=== PATIENT | male | born 1970 | race Caucasian/White ===

== ENCOUNTER 2016-07-15 20:06 | Emergency (ER) | payer OTHER ==
--- NOTE | 2016-07-15 22:32 | ED MED RECONCILIATION SUMMARY ---
Patient: CRISTOBAL MORA Medication Reconciliation Report [facility] VisitID: [id number] [address] [place] [address] 45y, M Registration Date/Time: 07/15/2016 Weight: 77.1 kg Height/Length: 72 in. BMI: 23.1 ALLERGIES: No Known Drug Allergy The patient's Home Medications are listed below: THE FOLLOWING MEDICATIONS NEED TO BE RECONCILED: Meloxicam Oral The source(s) of the original Home Medication information: Not obtained. The following Medications were given to the patient in the Emergency Department: None. The following Medications were prescribed to the patient: Penicillin V 500mg: take 1 tab orally every 6 hours for 10 days. Dispense forty (40). No refill -- Pamela Deleon A.R.N.P. [place] 5 mg / 325 mg tablets: take 1 to 2 orally every 6 hours as needed for pain. Dispense fifteen (15). No refills. Substitution is permissible. -- Pamela Deleon A.R.N.P.
--- NOTE | 2016-07-15 22:32 | ED CLINICAL REPORT ---
Clinical Report - Physicians/Mid Levels [facility] [address] [address] 07/15/2016 20:08 Patient: CRISTOBAL MORA Time Seen: 2049; initial patient contact, initial documentation, patient care assumed. Arrived- By private vehicle. Historian- patient. HISTORY OF PRESENT ILLNESS Chief Complaint: DENTAL PAIN. This started years ago and is still present and worsening. (3 days ago). Pain described as severe. No sore throat, mouth sores, nasal discharge or congestion or ear pain. He has had severe toothache involving a single tooth (right upper molar). He has had mild swelling of the right jaw. He has had mild swelling of the right face. He has had severe right jaw pain. He has had severe right-sided facial pain. (has dental appt scheduled for 07/27 tooth broke off long time ago, started hurting x3 days ago). Similar symptoms previously: Chronically. Recent medical care: Not recently seen/assessed. REVIEW OF SYSTEMS No fever, cough or difficulty breathing. All systems otherwise negative, except as recorded above. PAST HISTORY See nurses notes. PROBLEMS: Back Pain. --20:17 Nahun Miranda R.N. ADDITIONAL SURGERIES: Tonsillectomy. --20:17 Nahun Miranda R.N. SOCIAL HISTORY Heavy tobacco smoker. Occasional alcohol use. No drug use. No recent travel. Is a local resident. FAMILY HISTORY Negative. ADDITIONAL NOTES The nursing notes have been reviewed with agreement regarding the chief complaint, HPI, ROS, PMH and patient medications and allergies. PHYSICAL EXAM Vital Signs: 07/15/2016 20:14 BP: 152/95. HR: 50. RR: 16. O2 saturation: 98%. Temp: 98 F. Have been reviewed as abnormal and appear to be correct. Hypertensive. Bradycardic. Respiratory rate normal. Temperature normal. Oxygen saturation normal. Appearance: Alert. No acute distress. Head: Abnormal external inspection. Mild swelling of the right maxilla. Tenderness present to percussion/palpation of the sinuses: mild right maxillary tenderness. Eyes: Pupils equal, round and reactive to light. Conjunctivae and eyelids normal. ENT: Moderate, extensive dental decay (lower right third molar) (piece of tooth gone with decay, other teeth affected with decay, broken or missing). No gingival tenderness, induration, swelling or fluctuance. Ears normal. Nose normal. Trismus present. Pharynx normal. Lips normal. Gums normal. Uvula midline. Neck: Normal inspection. Trachea midline. No adenopathy. Thyroid normal. Neck supple. Respiratory: No respiratory distress. Skin: Normal skin color. No rash. Normal skin turgor. Extremities: Extremities exhibit normal ROM. Extremities nontender. Neuro: Oriented X 3. No motor deficit. No sensory deficit. PROGRESS AND PROCEDURES Course of Care: 20:51 07/15/16. pt has ellie for frequent rx of tramadol, last rx 06/08 #60, see report for full details. Patient counseled in person regarding the patient's stable condition and diagnosis. Differential Diagnosis: Other possible considerations: dental pain, abscess, caries, substance abuse. Above considerations are based on history and physical exam. Differential diagnosis was discussed with patient. Disposition: Discharged home in good and unchanged condition. Condition: good and stable. CLINICAL IMPRESSION Severe dental pain. INSTRUCTIONS Warnings: GENERAL WARNINGS: Return or contact your physician immediately if your condition worsens or changes unexpectedly, if not improving as expected, or if other problems arise. Specifically return if problem worsens. Prescription Medications: Penicillin V 500mg: take 1 tab orally every 6 hours for 10 days. Dispense forty (40). No refill [place] 5 mg / 325 mg tablets: take 1 to 2 orally every 6 hours as needed for pain. Dispense fifteen (15). No refills. Substitution is permissible. Follow-up: Follow up with a dentist as scheduled even if well. Summary of care provided to patient. Understanding of the discharge instructions verbalized by patient. (Electronically signed by Pamela Deleon A.R.N.P. 07/15/2016 22:32)
--- NOTE | 2016-07-15 22:32 | ED DISCHARGE INSTRUCTIONS ---
Patient: CRISTOBAL MORA General Instructions [facility] VisitID: [id number] [place] [address] 45y, M Registration Date/Time: 07/15/2016 Severe dental pain. INSTRUCTIONS Warnings: GENERAL WARNINGS: Return or contact your physician immediately if your condition worsens or changes unexpectedly, if not improving as expected, or if other problems arise. Specifically return if problem worsens. Prescription Medications: Penicillin V 500mg: take 1 tab orally every 6 hours for 10 days. Dispense forty (40). No refill [place] 5 mg / 325 mg tablets: take 1 to 2 orally every 6 hours as needed for pain. Dispense fifteen (15). No refills. Substitution is permissible. Follow-up: Follow up with a dentist as scheduled even if well. Summary of care provided to patient. Understanding of the discharge instructions verbalized by patient. ADDITIONAL INFORMATION Dental Pain A crack or cavity in the tooth, which exposes the sensitive inner area of the tooth can cause tooth pain. An infection in the gum or the root of the tooth can cause pain and swelling. The pain is often made worse by drinking hot or cold fluids, or biting on hard foods. Pain may spread from the tooth to the ear or jaw on the same side. Home Care: Avoid hot and cold foods and liquids since your tooth may be sensitive to temperature changes. If your tooth is chipped or cracked, or if there is a large open cavity, apply OIL OF CLOVES (available okfw-ktq-ohzpfnh in drug stores) directly to the tooth to reduce pain. Some pharmacies carry an ovfq-cgg-qklujgl "toothache kit." This contains a paste, which can be applied over the exposed tooth to decrease sensitivity. A cold pack on your jaw over the sore area may help reduce pain. You may use acetaminophen (Tylenol) or ibuprofen (Motrin, Advil) to control pain, unless another medicine was prescribed. [ NOTE: If you have chronic liver or kidney disease or ever had a stomach ulcer or GI bleeding, talk with your doctor before using these medicines.] If you have signs of an infection, an antibiotic will be given. Take it as directed. Follow-Up as directed with a dentist. Your pain may go away with the treatment given. However, only a dentist can fully evaluate and treat the cause and prevent the pain from coming back again. TOOTHACHE IS A SIGN OF DISEASE IN YOUR TOOTH AND SHOULD BE EXAMINED AND TREATED BY A DENTIST. Get Prompt Medical Attention if any of the following occur: Your face becomes swollen or red Pain worsens or spreads to the neck Fever over 100.4 F (38.0 C) Unusual drowsiness; headache or stiff neck; weakness or fainting Pus drains from the tooth Difficulty swallowing or breathing Dental Cavity A dental cavity is a pit or crater in the enamel surface of the tooth. This exposes the sensitive inner layer of the tooth and causes pain. If untreated, the cavity will get bigger and may cause an infection or abscess in the root of the tooth. An infection in the tooth is a much more serious problem and may require a root canal or removal of the entire tooth. The tooth pain may be made worse by drinking hot or cold fluids. It may spread from the tooth to the ear or jaw on the same side. Home Care: Avoid hot and cold foods, and liquids since your tooth may be sensitive to temperature changes. If your tooth is chipped or cracked, or if there is a large open cavity, apply OIL OF CLOVES (available jabv-zxw-zbguivi in drug stores) directly to the tooth to reduce pain. Some pharmacies carry an ercm-cpl-vupxlek "toothache kit." This contains oil of cloves and a paste, which can be applied over the exposed tooth to decrease sensitivity. An ice pack on your jaw over the sore area may help to reduce pain. You may use acetaminophen (Tylenol) or ibuprofen (Motrin, Advil) to control pain, unless another pain medicine was prescribed. [ NOTE: If you have liver disease or ever had a stomach ulcer, talk with your doctor before using these medicines.] If you have signs of an infection, an antibiotic will be given. Take it as directed. Follow-Up with your dentist as directed. Although your pain may go away with the treatment given, only a dentist can fully evaluate and treat this problem to prevent further tooth damage. Get Prompt Medical Attention if any of the following occur: Redness or swelling of the face Pain worsens or spreads to the neck Fever over 100.5 F (38C) Unusual drowsiness; headache or stiff neck; weakness or fainting Pus drains from the tooth or gum Difficulty swallowing or breathing Penicillin V Potassium Oral tablet What is this medicine? PENICILLIN V (pen i SILL in V) is a penicillin antibiotic. It is used to treat certain kinds of bacterial infections. It will not work for colds, flu, or other viral infections. How should I use this medicine? Take this medicine by mouth with a full glass of water. Follow the directions on the prescription label. Take your medicine at regular intervals. Do not take your medicine more often than directed. Take all of your medicine as directed even if you think your are better. Do not skip doses or stop your medicine early. Talk to your superannuation funds manager regarding the use of this medicine in children. While this drug may be prescribed for selected conditions, precautions do apply. What side effects may I notice from receiving this medicine? Side effects that you should report to your doctor or health career discovery teacher as soon as possible: allergic reactions like skin rash or hives, swelling of the face, lips, or tongue breathing problems fever new symptoms of infection redness, blistering, peeling or loosening of the skin, including inside the mouth unusually weak or tired Side effects that usually do not require medical attention (report to your doctor or health career discovery teacher if they continue or are bothersome): diarrhea headache nausea, vomiting sore mouth or tongue stomach upset What may interact with this medicine? control pills methotrexate other antibiotics probenecid some vaccines What if I miss a dose? If you miss a dose, take it as soon as you can. If it is almost time for your next dose, take only that dose. Do not take double or extra doses. Where should I keep my medicine? Keep out of the reach of children. Store at room temperature between 15 and 30 degrees C (59 and 86 degrees F). Keep container tightly closed. Throw away any unused medicine after the expiration date. What should I tell my health care provider before I take this medicine? They need to know if you have any of these conditions: asthma bowel disease, like colitis eczema kidney disease an unusual or allergic reaction to penicillin, cephalosporins, other antibiotics or medicines, foods, tartrazine or other dyes, or preservatives or trying to get breast-feeding What should I watch for while using this medicine? Tell your doctor or health career discovery teacher if your symptoms do not improve. Do not treat diarrhea with over the counter products. Contact your doctor if you have diarrhea that lasts more than 2 days or if it is severe and watery. If you have diabetes, you may get a false-positive result for sugar in your urine. Check with your doctor or health career discovery teacher. control pills may not work properly while you are taking this medicine. Talk to your doctor about using an extra method of control. Hydrocodone Bitartrate, Acetaminophen Oral tablet What is this medicine? ACETAMINOPHEN; HYDROCODONE (a set a CK andree fen; iliana droe KOE done) is a pain reliever. It is used to treat mild to moderate pain. How should I use this medicine? Take this medicine by mouth. Swallow it with a full glass of water. Follow the directions on the prescription label. If the medicine upsets your stomach, take the medicine with food or milk. Do not take more than you are told to take. Talk to your superannuation funds manager regarding the use of this medicine in children. This medicine is not approved for use in children. What side effects may I notice from receiving this medicine? Side effects that you should report to your doctor or health career discovery teacher as soon as possible: allergic reactions like skin rash, itching or hives, swelling of the face, lips, or tongue breathing problems confusion feeling faint or lightheaded, falls stomach pain yellowing of the eyes or skin Side effects that usually do not require medical attention (report to your doctor or health career discovery teacher if they continue or are bothersome): nausea, vomiting stomach upset What may interact with this medicine? alcohol antihistamines isoniazid medicines for depression, anxiety, or psychotic disturbances medicines for sleep muscle relaxants naltrexone narcotic medicines (opiates) for pain phenobarbital ritonavir tramadol What if I miss a dose? If you miss a dose, take it as soon as you can. If it is almost time for your next dose, take only that dose. Do not take double or extra doses. Where should I keep my medicine? Keep out of the reach of children. This medicine can be abused. Keep your medicine in a safe place to protect it from theft. Do not share this medicine with anyone. Selling or giving away this medicine is dangerous and against the law. Store at room temperature between 15 and 30 degrees C (59 and 86 degrees F). Protect from light. Keep container tightly closed. Throw away any unused medicine after the expiration date. Discard unused medicine and used packaging carefully. Pets and children can be harmed if they find used or lost packages. What should I tell my health care provider before I take this medicine? They need to know if you have any of these conditions: brain tumor Crohn's disease, inflammatory bowel disease, or ulcerative colitis drink more than 3 alcohol-containing drinks per day drug abuse or addiction head injury heart or circulation problems kidney disease or problems going to the bathroom liver disease lung disease, asthma, or breathing problems an unusual or allergic reaction to acetaminophen, hydrocodone, other opioid analgesics, other medicines, foods, dyes, or preservatives or trying to get breast-feeding What should I watch for while using this medicine? Tell your doctor or health career discovery teacher if your pain does not go away, if it gets worse, or if you have new or a different type of pain. You may develop tolerance to the medicine. Tolerance means that you will need a higher dose of the medicine for pain relief. Tolerance is normal and is expected if you take the medicine for a long time. Do not suddenly stop taking your medicine because you may develop a severe reaction. Your body becomes used to the medicine. This does NOT mean you are addicted. Addiction is a behavior related to getting and using a drug for a non-medical reason. If you have pain, you have a medical reason to take pain medicine. Your doctor will tell you how much medicine to take. If your doctor wants you to stop the medicine, the dose will be slowly lowered over time to avoid any side effects. You may get drowsy or dizzy when you first start taking the medicine or change doses. Do not drive, use machinery, or do anything that may be dangerous until you know how the medicine affects you. Stand or sit up slowly. There are different types of narcotic medicines (opiates) for pain. If you take more than one type at the same time, you may have more side effects. Give your health care provider a list of all medicines you use. Your doctor will tell you how much medicine to take. Do not take more medicine than directed. Call emergency for help if you have problems breathing. The medicine will cause constipation. Try to have a bowel movement at least every 2 to 3 days. If you do not have a bowel movement for 3 days, call your doctor or health career discovery teacher. Too much acetaminophen can be very dangerous. Do not take Tylenol (acetaminophen) or medicines that contain acetaminophen with this medicine. Many non-prescription medicines contain acetaminophen. Always read the labels carefully. You have been given the following additional information: Dental Pain Dental Cavity Penicillin V Potassium Oral tablet Hydrocodone Bitartrate, Acetaminophen Oral tablet (Electronically signed by Pamela Deleon A.R.N.P. 07/15/2016 22:32)
--- NOTE | 2016-07-15 22:32 | ED CLINICAL REPORT ---
Clinical Report - Physicians/Mid Levels [facility] [address] [place] [address] 07/15/2016 20:08 Patient: CRISTOBAL MORA Time Seen: 2049; initial patient contact, initial documentation, patient care assumed. Arrived- By private vehicle. Historian- patient. HISTORY OF PRESENT ILLNESS Chief Complaint: DENTAL PAIN. This started years ago and is still present and worsening. (3 days ago). Pain described as severe. No sore throat, mouth sores, nasal discharge or congestion or ear pain. He has had severe toothache involving a single tooth (right upper molar). He has had mild swelling of the right jaw. He has had mild swelling of the right face. He has had severe right jaw pain. He has had severe right-sided facial pain. (has dental appt scheduled for 07/27 tooth broke off long time ago, started hurting x3 days ago). Similar symptoms previously: Chronically. Recent medical care: Not recently seen/assessed. REVIEW OF SYSTEMS No fever, cough or difficulty breathing. All systems otherwise negative, except as recorded above. PAST HISTORY See nurses notes. PROBLEMS: Back Pain. --20:17 Nahun Miranda R.N. ADDITIONAL SURGERIES: Tonsillectomy. --20:17 Nahun Miranda R.N. SOCIAL HISTORY Heavy tobacco smoker. Occasional alcohol use. No drug use. No recent travel. Is a local resident. FAMILY HISTORY Negative. ADDITIONAL NOTES The nursing notes have been reviewed with agreement regarding the chief complaint, HPI, ROS, PMH and patient medications and allergies. PHYSICAL EXAM Vital Signs: 07/15/2016 20:14 BP: 152/95. HR: 50. RR: 16. O2 saturation: 98%. Temp: 98 F. Have been reviewed as abnormal and appear to be correct. Hypertensive. Bradycardic. Respiratory rate normal. Temperature normal. Oxygen saturation normal. Appearance: Alert. No acute distress. Head: Abnormal external inspection. Mild swelling of the right maxilla. Tenderness present to percussion/palpation of the sinuses: mild right maxillary tenderness. Eyes: Pupils equal, round and reactive to light. Conjunctivae and eyelids normal. ENT: Moderate, extensive dental decay (lower right third molar) (piece of tooth gone with decay, other teeth affected with decay, broken or missing). No gingival tenderness, induration, swelling or fluctuance. Ears normal. Nose normal. Trismus present. Pharynx normal. Lips normal. Gums normal. Uvula midline. Neck: Normal inspection. Trachea midline. No adenopathy. Thyroid normal. Neck supple. Respiratory: No respiratory distress. Skin: Normal skin color. No rash. Normal skin turgor. Extremities: Extremities exhibit normal ROM. Extremities nontender. Neuro: Oriented X 3. No motor deficit. No sensory deficit. PROGRESS AND PROCEDURES Course of Care: 20:51 07/15/16. pt has ellie for frequent rx of tramadol, last rx 06/08 #60, see report for full details. Patient counseled in person regarding the patient's stable condition and diagnosis. Differential Diagnosis: Other possible considerations: dental pain, abscess, caries, substance abuse. Above considerations are based on history and physical exam. Differential diagnosis was discussed with patient. Disposition: Discharged home in good and unchanged condition. Condition: good and stable. CLINICAL IMPRESSION Severe dental pain. INSTRUCTIONS Warnings: GENERAL WARNINGS: Return or contact your physician immediately if your condition worsens or changes unexpectedly, if not improving as expected, or if other problems arise. Specifically return if problem worsens. Prescription Medications: Penicillin V 500mg: take 1 tab orally every 6 hours for 10 days. Dispense forty (40). No refill [place] 5 mg / 325 mg tablets: take 1 to 2 orally every 6 hours as needed for pain. Dispense fifteen (15). No refills. Substitution is permissible. Follow-up: Follow up with a dentist as scheduled even if well. Summary of care provided to patient. Understanding of the discharge instructions verbalized by patient. (Electronically signed by Pamela Deleon A.R.N.P. 07/15/2016 22:32)
--- NOTE | 2016-07-15 22:32 | ED MED RECONCILIATION SUMMARY ---
Patient: CRISTOBAL MORA Medication Reconciliation Report [facility] VisitID: [id number] [address] [place] [address] 45y, M Registration Date/Time: 07/15/2016 Weight: 77.1 kg Height/Length: 72 in. BMI: 23.1 ALLERGIES: No Known Drug Allergy The patient's Home Medications are listed below: THE FOLLOWING MEDICATIONS NEED TO BE RECONCILED: Meloxicam Oral The source(s) of the original Home Medication information: Not obtained. The following Medications were given to the patient in the Emergency Department: None. The following Medications were prescribed to the patient: Penicillin V 500mg: take 1 tab orally every 6 hours for 10 days. Dispense forty (40). No refill -- Pamela Deleon A.R.N.P. [place] 5 mg / 325 mg tablets: take 1 to 2 orally every 6 hours as needed for pain. Dispense fifteen (15). No refills. Substitution is permissible. -- Pamela Deleon A.R.N.P.
--- NOTE | 2016-07-15 22:32 | ED NURSING NOTES ---
Clinical Report - Nurses [facility] [address] [place] [address] 07/15/2016 20:08 Patient: CRISTOBAL MORA TRIAGE Triage time 2014. Acuity: LEVEL 4. Chief Complaint: MOUTH SORE, RIGHT UPPER TOOTHACHE and CHIPPED TOOTH and SWELLING OF JAW / FACE. --20:20 Nahun Miranda R.N. 20:14 07/15/16. BP: 152/95. HR: 50. RR: 16. O2 saturation: 98%. Temp: 98 F. Pain level now 01/26. --20:20 Nahun Miranda R.N. Weight: 77.1 kg stated. Height/Length: 72 inches Per Patient. BMI: 23.1. --20:17 Nahun Miranda R.N. Medications Meloxicam Oral. --20:16 Nahun Miranda R.N. Allergies No Known Drug Allergy. --20:16 Nahun Miranda R.N. History Arrived by private vehicle. Historian: patient. Unaccompanied. Onset. (3 days). He has a dental appointment scheduled (07/27/16). He has had facial pain. He has had a toothache. Treatment MATERIAL COORDINATOR: (ice, salt water gargle). SOCIAL HX: Heavy tobacco smoker- 1 pack per day. FALL RISK ASSESSMENT: Fall risk assessment completed. No fall risk identified. NUTRITIONAL RISK ASSESSMENT: The nutritional risk assessment revealed no deficiencies. FUNCTIONAL ASSESSMENT: Functional assessment: no impairments noted. LEARNING NEEDS ASSESSMENT: The learning needs assessment revealed no barriers. SKIN INTEGRITY ASSESSMENT: Skin integrity risk assessment completed. No skin integrity risk identified. --20:20 Nahun Miranda R.N. PROBLEMS: Back Pain. --20:17 Nahun Miranda R.N. ADDITIONAL SURGERIES: Tonsillectomy. --20:17 Nahun Miranda R.N. Interventions ID band on patient. --20:20 Nahun Miranda R.N. PHYSICAL ASSESSMENT GENERAL / NEURO / PSYCH: Alert. Oriented X 4. Appears in no acute distress. HEENT: Facial swelling present. Pupils equal, round and reactive to light. Pharynx within normal limits. Voice within normal limits. No dental injury noted. Dental tenderness. Dental decay. Mucous membranes are pink. RESPIRATORY: Respirations not labored. CVS: Capillary refill less than 2 seconds. SKIN: Skin is warm and dry. Normal skin turgor. --20:21 Nahun Miranda R.N. NURSING PROGRESS NOTES Head of bed elevated. Reassurance given. Patient identifiers checked. Call light placed in reach. Bed placed in lowest position. Brakes of bed on. --20:21 Nahun Miranda R.N. DISPOSITION / DISCHARGE Departure time: 2224. The patient left prior to discharge education being provided. The patient left the Emergency Department without completion of treatment; patient was unaccompanied. The patient appears to be alert, oriented x4, coherent and in no acute distress. The patient notified the ED staff prior to leaving the department and stated is leaving the ED due to the long waiting time. Notified the ED physician of patient departure. Prior to leaving the ED, he was advised to stay for completion of treatment. He was informed of the risks of leaving and verbalized understanding of these risks. Patient left without signing form prior to leaving. He left the Emergency Department ambulatory and via private vehicle. ( pt left after being seen, before tx, stating he needed to leave right now. pt refused to wait for ama paperwork. refused vitals.). --22:26 Nahun Miranda R.N. Locked/Released at 07/15/2016 22:27 by Nahun Miranda R.N.
--- NOTE | 2016-07-15 22:32 | ED DISCHARGE INSTRUCTIONS ---
Patient: CRISTOBAL MORA General Instructions [facility] VisitID: [id number] [place] [address] 45y, M Registration Date/Time: 07/15/2016 Severe dental pain. INSTRUCTIONS Warnings: GENERAL WARNINGS: Return or contact your physician immediately if your condition worsens or changes unexpectedly, if not improving as expected, or if other problems arise. Specifically return if problem worsens. Prescription Medications: Penicillin V 500mg: take 1 tab orally every 6 hours for 10 days. Dispense forty (40). No refill [place] 5 mg / 325 mg tablets: take 1 to 2 orally every 6 hours as needed for pain. Dispense fifteen (15). No refills. Substitution is permissible. Follow-up: Follow up with a dentist as scheduled even if well. Summary of care provided to patient. Understanding of the discharge instructions verbalized by patient. ADDITIONAL INFORMATION Dental Pain A crack or cavity in the tooth, which exposes the sensitive inner area of the tooth can cause tooth pain. An infection in the gum or the root of the tooth can cause pain and swelling. The pain is often made worse by drinking hot or cold fluids, or biting on hard foods. Pain may spread from the tooth to the ear or jaw on the same side. Home Care: Avoid hot and cold foods and liquids since your tooth may be sensitive to temperature changes. If your tooth is chipped or cracked, or if there is a large open cavity, apply OIL OF CLOVES (available pjho-gfd-ohdlwuo in drug stores) directly to the tooth to reduce pain. Some pharmacies carry an upay-hvd-wkfpqen "toothache kit." This contains a paste, which can be applied over the exposed tooth to decrease sensitivity. A cold pack on your jaw over the sore area may help reduce pain. You may use acetaminophen (Tylenol) or ibuprofen (Motrin, Advil) to control pain, unless another medicine was prescribed. [ NOTE: If you have chronic liver or kidney disease or ever had a stomach ulcer or GI bleeding, talk with your doctor before using these medicines.] If you have signs of an infection, an antibiotic will be given. Take it as directed. Follow-Up as directed with a dentist. Your pain may go away with the treatment given. However, only a dentist can fully evaluate and treat the cause and prevent the pain from coming back again. TOOTHACHE IS A SIGN OF DISEASE IN YOUR TOOTH AND SHOULD BE EXAMINED AND TREATED BY A DENTIST. Get Prompt Medical Attention if any of the following occur: Your face becomes swollen or red Pain worsens or spreads to the neck Fever over 100.4 F (38.0 C) Unusual drowsiness; headache or stiff neck; weakness or fainting Pus drains from the tooth Difficulty swallowing or breathing Dental Cavity A dental cavity is a pit or crater in the enamel surface of the tooth. This exposes the sensitive inner layer of the tooth and causes pain. If untreated, the cavity will get bigger and may cause an infection or abscess in the root of the tooth. An infection in the tooth is a much more serious problem and may require a root canal or removal of the entire tooth. The tooth pain may be made worse by drinking hot or cold fluids. It may spread from the tooth to the ear or jaw on the same side. Home Care: Avoid hot and cold foods, and liquids since your tooth may be sensitive to temperature changes. If your tooth is chipped or cracked, or if there is a large open cavity, apply OIL OF CLOVES (available waih-eco-qygaoqz in drug stores) directly to the tooth to reduce pain. Some pharmacies carry an ljyh-hxg-jangeec "toothache kit." This contains oil of cloves and a paste, which can be applied over the exposed tooth to decrease sensitivity. An ice pack on your jaw over the sore area may help to reduce pain. You may use acetaminophen (Tylenol) or ibuprofen (Motrin, Advil) to control pain, unless another pain medicine was prescribed. [ NOTE: If you have liver disease or ever had a stomach ulcer, talk with your doctor before using these medicines.] If you have signs of an infection, an antibiotic will be given. Take it as directed. Follow-Up with your dentist as directed. Although your pain may go away with the treatment given, only a dentist can fully evaluate and treat this problem to prevent further tooth damage. Get Prompt Medical Attention if any of the following occur: Redness or swelling of the face Pain worsens or spreads to the neck Fever over 100.5 F (38C) Unusual drowsiness; headache or stiff neck; weakness or fainting Pus drains from the tooth or gum Difficulty swallowing or breathing Penicillin V Potassium Oral tablet What is this medicine? PENICILLIN V (pen i SILL in V) is a penicillin antibiotic. It is used to treat certain kinds of bacterial infections. It will not work for colds, flu, or other viral infections. How should I use this medicine? Take this medicine by mouth with a full glass of water. Follow the directions on the prescription label. Take your medicine at regular intervals. Do not take your medicine more often than directed. Take all of your medicine as directed even if you think your are better. Do not skip doses or stop your medicine early. Talk to your active directory administrator regarding the use of this medicine in children. While this drug may be prescribed for selected conditions, precautions do apply. What side effects may I notice from receiving this medicine? Side effects that you should report to your doctor or health child care center administrator as soon as possible: allergic reactions like skin rash or hives, swelling of the face, lips, or tongue breathing problems fever new symptoms of infection redness, blistering, peeling or loosening of the skin, including inside the mouth unusually weak or tired Side effects that usually do not require medical attention (report to your doctor or health child care center administrator if they continue or are bothersome): diarrhea headache nausea, vomiting sore mouth or tongue stomach upset What may interact with this medicine? control pills methotrexate other antibiotics probenecid some vaccines What if I miss a dose? If you miss a dose, take it as soon as you can. If it is almost time for your next dose, take only that dose. Do not take double or extra doses. Where should I keep my medicine? Keep out of the reach of children. Store at room temperature between 15 and 30 degrees C (59 and 86 degrees F). Keep container tightly closed. Throw away any unused medicine after the expiration date. What should I tell my health care provider before I take this medicine? They need to know if you have any of these conditions: asthma bowel disease, like colitis eczema kidney disease an unusual or allergic reaction to penicillin, cephalosporins, other antibiotics or medicines, foods, tartrazine or other dyes, or preservatives or trying to get breast-feeding What should I watch for while using this medicine? Tell your doctor or health child care center administrator if your symptoms do not improve. Do not treat diarrhea with over the counter products. Contact your doctor if you have diarrhea that lasts more than 2 days or if it is severe and watery. If you have diabetes, you may get a false-positive result for sugar in your urine. Check with your doctor or health child care center administrator. control pills may not work properly while you are taking this medicine. Talk to your doctor about using an extra method of control. Hydrocodone Bitartrate, Acetaminophen Oral tablet What is this medicine? ACETAMINOPHEN; HYDROCODONE (a set a CK andree fen; iliana droe KOE done) is a pain reliever. It is used to treat mild to moderate pain. How should I use this medicine? Take this medicine by mouth. Swallow it with a full glass of water. Follow the directions on the prescription label. If the medicine upsets your stomach, take the medicine with food or milk. Do not take more than you are told to take. Talk to your active directory administrator regarding the use of this medicine in children. This medicine is not approved for use in children. What side effects may I notice from receiving this medicine? Side effects that you should report to your doctor or health child care center administrator as soon as possible: allergic reactions like skin rash, itching or hives, swelling of the face, lips, or tongue breathing problems confusion feeling faint or lightheaded, falls stomach pain yellowing of the eyes or skin Side effects that usually do not require medical attention (report to your doctor or health child care center administrator if they continue or are bothersome): nausea, vomiting stomach upset What may interact with this medicine? alcohol antihistamines isoniazid medicines for depression, anxiety, or psychotic disturbances medicines for sleep muscle relaxants naltrexone narcotic medicines (opiates) for pain phenobarbital ritonavir tramadol What if I miss a dose? If you miss a dose, take it as soon as you can. If it is almost time for your next dose, take only that dose. Do not take double or extra doses. Where should I keep my medicine? Keep out of the reach of children. This medicine can be abused. Keep your medicine in a safe place to protect it from theft. Do not share this medicine with anyone. Selling or giving away this medicine is dangerous and against the law. Store at room temperature between 15 and 30 degrees C (59 and 86 degrees F). Protect from light. Keep container tightly closed. Throw away any unused medicine after the expiration date. Discard unused medicine and used packaging carefully. Pets and children can be harmed if they find used or lost packages. What should I tell my health care provider before I take this medicine? They need to know if you have any of these conditions: brain tumor Crohn's disease, inflammatory bowel disease, or ulcerative colitis drink more than 3 alcohol-containing drinks per day drug abuse or addiction head injury heart or circulation problems kidney disease or problems going to the bathroom liver disease lung disease, asthma, or breathing problems an unusual or allergic reaction to acetaminophen, hydrocodone, other opioid analgesics, other medicines, foods, dyes, or preservatives or trying to get breast-feeding What should I watch for while using this medicine? Tell your doctor or health child care center administrator if your pain does not go away, if it gets worse, or if you have new or a different type of pain. You may develop tolerance to the medicine. Tolerance means that you will need a higher dose of the medicine for pain relief. Tolerance is normal and is expected if you take the medicine for a long time. Do not suddenly stop taking your medicine because you may develop a severe reaction. Your body becomes used to the medicine. This does NOT mean you are addicted. Addiction is a behavior related to getting and using a drug for a non-medical reason. If you have pain, you have a medical reason to take pain medicine. Your doctor will tell you how much medicine to take. If your doctor wants you to stop the medicine, the dose will be slowly lowered over time to avoid any side effects. You may get drowsy or dizzy when you first start taking the medicine or change doses. Do not drive, use machinery, or do anything that may be dangerous until you know how the medicine affects you. Stand or sit up slowly. There are different types of narcotic medicines (opiates) for pain. If you take more than one type at the same time, you may have more side effects. Give your health care provider a list of all medicines you use. Your doctor will tell you how much medicine to take. Do not take more medicine than directed. Call emergency for help if you have problems breathing. The medicine will cause constipation. Try to have a bowel movement at least every 2 to 3 days. If you do not have a bowel movement for 3 days, call your doctor or health child care center administrator. Too much acetaminophen can be very dangerous. Do not take Tylenol (acetaminophen) or medicines that contain acetaminophen with this medicine. Many non-prescription medicines contain acetaminophen. Always read the labels carefully. You have been given the following additional information: Dental Pain Dental Cavity Penicillin V Potassium Oral tablet Hydrocodone Bitartrate, Acetaminophen Oral tablet (Electronically signed by Pamela Deleon A.R.N.P. 07/15/2016 22:32)
--- NOTE | 2016-07-15 22:32 | ED MAR SUMMARY ---
..... Medication Administration Record [facility] [address] [place] [address] Patient: CRISTOBAL MORA Visit ID: [id number] 45y, M Weight: 77.1 kg Height/Length: 72 in BMI: 23.1 ALLERGIES: No Known Drug Allergy
--- NOTE | 2016-07-15 22:32 | ED NURSING NOTES ---
Clinical Report - Nurses [facility] [address] [place] [address] 07/15/2016 20:08 Patient: CRISTOBAL MORA TRIAGE Triage time 2014. Acuity: LEVEL 4. Chief Complaint: MOUTH SORE, RIGHT UPPER TOOTHACHE and CHIPPED TOOTH and SWELLING OF JAW / FACE. --20:20 Nahun Miranda R.N. 20:14 07/15/16. BP: 152/95. HR: 50. RR: 16. O2 saturation: 98%. Temp: 98 F. Pain level now 01/26. --20:20 Nahun Miranda R.N. Weight: 77.1 kg stated. Height/Length: 72 inches Per Patient. BMI: 23.1. --20:17 Nahun Miranda R.N. Medications Meloxicam Oral. --20:16 Nahun Miranda R.N. Allergies No Known Drug Allergy. --20:16 Nahun Miranda R.N. History Arrived by private vehicle. Historian: patient. Unaccompanied. Onset. (3 days). He has a dental appointment scheduled (07/27/16). He has had facial pain. He has had a toothache. Treatment STERILE PROCESSING TECH: (ice, salt water gargle). SOCIAL HX: Heavy tobacco smoker- 1 pack per day. FALL RISK ASSESSMENT: Fall risk assessment completed. No fall risk identified. NUTRITIONAL RISK ASSESSMENT: The nutritional risk assessment revealed no deficiencies. FUNCTIONAL ASSESSMENT: Functional assessment: no impairments noted. LEARNING NEEDS ASSESSMENT: The learning needs assessment revealed no barriers. SKIN INTEGRITY ASSESSMENT: Skin integrity risk assessment completed. No skin integrity risk identified. --20:20 Nahun Miranda R.N. PROBLEMS: Back Pain. --20:17 Nahun Miranda R.N. ADDITIONAL SURGERIES: Tonsillectomy. --20:17 Nahun Miranda R.N. Interventions ID band on patient. --20:20 Nahun Miranda R.N. PHYSICAL ASSESSMENT GENERAL / NEURO / PSYCH: Alert. Oriented X 4. Appears in no acute distress. HEENT: Facial swelling present. Pupils equal, round and reactive to light. Pharynx within normal limits. Voice within normal limits. No dental injury noted. Dental tenderness. Dental decay. Mucous membranes are pink. RESPIRATORY: Respirations not labored. CVS: Capillary refill less than 2 seconds. SKIN: Skin is warm and dry. Normal skin turgor. --20:21 Nahun Miranda R.N. NURSING PROGRESS NOTES Head of bed elevated. Reassurance given. Patient identifiers checked. Call light placed in reach. Bed placed in lowest position. Brakes of bed on. --20:21 Nahun Miranda R.N. DISPOSITION / DISCHARGE Departure time: 2224. The patient left prior to discharge education being provided. The patient left the Emergency Department without completion of treatment; patient was unaccompanied. The patient appears to be alert, oriented x4, coherent and in no acute distress. The patient notified the ED staff prior to leaving the department and stated is leaving the ED due to the long waiting time. Notified the ED physician of patient departure. Prior to leaving the ED, he was advised to stay for completion of treatment. He was informed of the risks of leaving and verbalized understanding of these risks. Patient left without signing form prior to leaving. He left the Emergency Department ambulatory and via private vehicle. ( pt left after being seen, before tx, stating he needed to leave right now. pt refused to wait for ama paperwork. refused vitals.). --22:26 Nahun Miranda R.N. Locked/Released at 07/15/2016 22:27 by Nahun Miranda R.N.
--- NOTE | 2016-07-15 22:32 | ED MAR SUMMARY ---
..... Medication Administration Record [facility] [address] [place] [address] Patient: CRISTOBAL MORA Visit ID: [id number] 45y, M Weight: 77.1 kg Height/Length: 72 in BMI: 23.1 ALLERGIES: No Known Drug Allergy
== END 2016-07-15 22:26 | disposition home or self-care (01) ==
LOC: ED SRH 20:06
DX: K08.89 Other specified disorders of teeth and supporting structures (principal); K02.9 Dental caries, unspecified; F17.200 Nicotine dependence, unspecified, uncomplicated

== ENCOUNTER 2016-11-01 23:47 | Emergency (ER) | payer OTHER ==
--- NOTE | 2016-11-02 00:32 | ED CLINICAL REPORT ---
Clinical Report - Physicians/Mid Levels [facility] [address] [place] [address] 11/01/2016 23:48 [id number] Time Seen: 00:03 Nov 02 2016. Arrived- By private vehicle. Historian- patient. CPT: ER phys charges level 3 plus (#[id number]). Abscess complicated I&D (#[id number]). HISTORY OF PRESENT ILLNESS Chief Complaint: LESION. This started last night and is still present. It is described as painful. It has been located on the abdomen. A cause has been identified. (picked at a pimple). Similar symptoms previously: None. Recent medical care: Not recently seen/assessed. REVIEW OF SYSTEMS No fever, chills, sore throat, cough or hoarseness. No enlarged lymph nodes, abdominal pain, nausea, diarrhea or joint pain. No vomiting. PAST HISTORY Back Pain. ADDITIONAL SURGERIES: Tonsillectomy. Ear Tubes. Medications: None. Allergies: Bee stings. SOCIAL HISTORY Heavy tobacco smoker (cigarette)- 1 pack per day. No alcohol use or drug use. ADDITIONAL NOTES The nursing notes have been reviewed. PHYSICAL EXAM Vital Signs: 11/01/2016 23:54 BP: 127/77. HR: 101. RR: 20. O2 saturation: 100%. Temp: 98.5 F. Pain level now: 9/10. Appearance: Alert. Anxious. Patient in mild distress. Eyes: Conjunctivae and eyelids normal. ENT: Pharynx normal. Neck: Neck supple. CVS: Normal heart rate and rhythm. No cardiac murmur. Respiratory: No respiratory distress. Skin: Skin warm. Single medium abscess with fluctuance and pointing to the abdomen. Skin rash present. Rash present on the left abdomen. Extremities: Extremities nontender. Neuro: Oriented X 3. LABS, X-RAYS, AND EKG Laboratory Tests: Culture, Wound Deep: (CHIO: 11/02/2016 00:30) ( MsgRcvd 11/03/2016 12:31) IP SPECIMEN DESCRIPTION: SWAB Test Result Flag Units (Reference) GRAM STAIN, WOUND, DEEP NO CELLS/NO BACTERIA: NO CELLS OR BACTERIA SEEN CULTURE, WOUND DEEP, AEROBIC DATE: 11/03/16 PRELIM REPORT: PRELIMINARY REPORT #1 -- STAAUR GROWTH: HEAVY GROWTH ID AND SENS TO FOLLOW: SENSITIVITY TO FOLLOW . PROGRESS AND PROCEDURES Incision & Drainage of Abscess: The abscess is located in the abdomen. The risks of the procedure, benefits and alternatives were explained. Consent was obtained. Anesthesia provided using 2% lidocaine. Skin cleansed with Betadine. The abscess was incised with a #11 surgical blade. A moderate amount of pus was drained. Cavity was irrigated with saline and packed with gauze. Sample obtained for cultures and gram stain. A dressing was applied. Estimated blood loss: 1 mL. Patient/family counseled. Disposition: Discharged. Condition: stable and improved. CLINICAL IMPRESSION Single deep abscess to the abdominal wall with incision and drainage. INSTRUCTIONS Protect wound and keep wound area clean. Leave dressing in place until seen in follow-up. Prescription Medications: Bactrim DS 800 mg / 160 mg: Take 1 tablet orally every 12 hours for 7 days. Dispense fourteen (14). No refills. Substitution is permissible. OTC Medications: Acetaminophen (available over the counter): take according to label instructions. Follow-up: Follow up with your doctor in two days. Call for an appointment. Understanding of the discharge instructions verbalized by patient. (Electronically signed by Nikko Joe MD 11/03/2016 13:09)
--- NOTE | 2016-11-02 00:32 | ED NURSING NOTES ---
Clinical Report - Nurses [facility] [place] [address] 11/01/2016 23:48 Patient: CRISTOBAL MORA TRIAGE Acuity: LEVEL 4. Chief Complaint: SKIN LESION. Alert. JAYMIE COMA SCORE: Jaymie Coma Scale: 15- eyes open spontaneously (4); best verbal response- oriented x 4 (5); best motor response- obeys commands (6). --23:58 Tay Jimenes R.N. 23:54 11/01/16. BP: 127/77. HR: 101. RR: 20 (regular and unlabored). O2 saturation: 100%. Temp: 98.5 F (oral). Pain level now: 02/26. --23:58 Tay Jimenes R.N. Weight: 78 kg stated. Height/Length: 72 inches Per Patient. BMI: 23.3. --23:57 Tay Jimenes R.N. Medications None. --23:55 aTy Jimenes R.N. Allergies Bee stings. --23:55 Tay Jimenes R.N. History Reported as (left abdomen). Onset. ("last night"). SOCIAL HX: Heavy tobacco smoker (cigarette)- 1 pack per day. No alcohol use or drug use. ( denies SI/HI, states that he feels safe at home). ABUSE ASSESSMENT: No report of abuse. SELF HARM ASSESSMENT: A self harm assessment was performed. The patient answered "no" to the question "Do you have thoughts of harming or killing yourself?" and "Are you here because you tried to hurt yourself?". FALL RISK ASSESSMENT: Fall risk assessment completed. No fall risk identified. NUTRITIONAL RISK ASSESSMENT: The nutritional risk assessment revealed no deficiencies. FUNCTIONAL ASSESSMENT: Functional assessment: no impairments noted. LEARNING NEEDS ASSESSMENT: The learning needs assessment revealed no barriers. --23:58 Tay Jimenes R.N. PROBLEMS: Back Pain. --23:55 Tay Jimenes R.N. ADDITIONAL SURGERIES: Tonsillectomy. --23:55 Tay Jimenes R.N. Ear Tubes. --23:55 Tay Jimenes R.N. Interventions ID band on patient. To treatment room. --23:58 Tay Jimenes R.N. PHYSICAL ASSESSMENT Ambulatory to room. ( abscess on left side of abdomen, area reddened and tender). GENERAL / NEURO / PSYCH: Alert. Appears in pain. Oriented X 4. HEENT: Mucous membranes are pink. RESPIRATORY: Respirations not labored. CVS: Capillary refill less than 2 seconds. SKIN: Skin is warm and dry. --23:59 Tay Jimenes R.N. NURSING PROGRESS NOTES Reassurance given. Two patient identifiers checked. Call light placed in reach. Side rails up x 1. Bed placed in lowest position. Brakes of bed on. Patient ready for evaluation- chart flagged. Patient waiting for evaluation. ( Patient refused to change in a gown, stating that he is cold, refuses a blanket). --23:59 Tay Jimenes R.N. Head of bed elevated. --00:00 Tay Jimnees R.N. 00:22 11/02/2016 Lidocaine Injection Injectable 2 % given. (at bedside, given to physiciam). --00:22 Tay Jimenes R.N. 00:34 11/02/2016 Bactrim DS (Sulfamethoxazole-TMP DS) PO 2 tab given. Allergies verified and confirmed 5 rights. --00:36 Kiran Grubbs R.N. 00:21. I & D: Incision and Drainage of abscess performed by ED physician. Assisted by one tech. The abscess is located on the abdomen. Preparation: Incision and Drainage tray set up with 2% lidocaine. Post-procedure: he was stable, no complications and bleeding controlled. Total time of assist / procedure: 15 minutes. --00:37 Kiran Grubbs R.N. 00:40. Applied dressing consisting of Band-Aid, following the application of antibiotic ointment (bacitracin). --00:40 Kiran Grubbs R.N. 00:41. The patient is calm and resting quietly. RESPIRATORY: No respiratory distress. SKIN: Skin is warm and dry. Skin color within normal limits. --00:44 Kiran Grubbs R.N. DISPOSITION / DISCHARGE Departure time: 00:43. Condition at departure: stable. No learning barriers present. Discharge instructions provided and reviewed with the patient. Reviewed medication(s) side effects, precautions, dosing and course information. Prescription(s) given to the patient. Patient verbalized understanding. Written instructions provided in Welsh. The patient was discharged home and unaccompanied at time of discharge. He left the Emergency Department ambulatory and via private vehicle. Patient driving. FALL RISK ASSESSMENT: Fall risk assessment completed. No fall risk identified. --00:43 Kiran Grubbs R.N. Locked/Released at 11/02/2016 0:44 by Kiran Grubbs R.N.
--- NOTE | 2016-11-02 00:32 | ED NURSING NOTES ---
Clinical Report - Nurses [facility] [place] [address] 11/01/2016 23:48 Patient: CRISTOBAL MORA TRIAGE Acuity: LEVEL 4. Chief Complaint: SKIN LESION. Alert. JAYMIE COMA SCORE: Jaymie Coma Scale: 15- eyes open spontaneously (4); best verbal response- oriented x 4 (5); best motor response- obeys commands (6). --23:58 Tay Jimenes R.N. 23:54 11/01/16. BP: 127/77. HR: 101. RR: 20 (regular and unlabored). O2 saturation: 100%. Temp: 98.5 F (oral). Pain level now: 02/26. --23:58 Tay Jimenes R.N. Weight: 78 kg stated. Height/Length: 72 inches Per Patient. BMI: 23.3. --23:57 Tay Jimenes R.N. Medications None. --23:55 Tay Jimenes R.N. Allergies Bee stings. --23:55 Tay Jimenes R.N. History Reported as (left abdomen). Onset. ("last night"). SOCIAL HX: Heavy tobacco smoker (cigarette)- 1 pack per day. No alcohol use or drug use. ( denies SI/HI, states that he feels safe at home). ABUSE ASSESSMENT: No report of abuse. SELF HARM ASSESSMENT: A self harm assessment was performed. The patient answered "no" to the question "Do you have thoughts of harming or killing yourself?" and "Are you here because you tried to hurt yourself?". FALL RISK ASSESSMENT: Fall risk assessment completed. No fall risk identified. NUTRITIONAL RISK ASSESSMENT: The nutritional risk assessment revealed no deficiencies. FUNCTIONAL ASSESSMENT: Functional assessment: no impairments noted. LEARNING NEEDS ASSESSMENT: The learning needs assessment revealed no barriers. --23:58 Tay Jimenes R.N. PROBLEMS: Back Pain. --23:55 Tay Jimenes R.N. ADDITIONAL SURGERIES: Tonsillectomy. --23:55 Tay Jimenes R.N. Ear Tubes. --23:55 Tay Jimenes R.N. Interventions ID band on patient. To treatment room. --23:58 Tay Jimenes R.N. PHYSICAL ASSESSMENT Ambulatory to room. ( abscess on left side of abdomen, area reddened and tender). GENERAL / NEURO / PSYCH: Alert. Appears in pain. Oriented X 4. HEENT: Mucous membranes are pink. RESPIRATORY: Respirations not labored. CVS: Capillary refill less than 2 seconds. SKIN: Skin is warm and dry. --23:59 Tay Jimenes R.N. NURSING PROGRESS NOTES Reassurance given. Two patient identifiers checked. Call light placed in reach. Side rails up x 1. Bed placed in lowest position. Brakes of bed on. Patient ready for evaluation- chart flagged. Patient waiting for evaluation. ( Patient refused to change in a gown, stating that he is cold, refuses a blanket). --23:59 Tay Jimenes R.N. Head of bed elevated. --00:00 Tay Jimenes R.N. 00:22 11/02/2016 Lidocaine Injection Injectable 2 % given. (at bedside, given to physiciam). --00:22 Tay Jimenes R.N. 00:34 11/02/2016 Bactrim DS (Sulfamethoxazole-TMP DS) PO 2 tab given. Allergies verified and confirmed 5 rights. --00:36 Kiran Grubbs R.N. 00:21. I & D: Incision and Drainage of abscess performed by ED physician. Assisted by one tech. The abscess is located on the abdomen. Preparation: Incision and Drainage tray set up with 2% lidocaine. Post-procedure: he was stable, no complications and bleeding controlled. Total time of assist / procedure: 15 minutes. --00:37 Kiran Grubbs R.N. 00:40. Applied dressing consisting of Band-Aid, following the application of antibiotic ointment (bacitracin). --00:40 Kiran Grubbs R.N. 00:41. The patient is calm and resting quietly. RESPIRATORY: No respiratory distress. SKIN: Skin is warm and dry. Skin color within normal limits. --00:44 Kiran Grubbs R.N. DISPOSITION / DISCHARGE Departure time: 00:43. Condition at departure: stable. No learning barriers present. Discharge instructions provided and reviewed with the patient. Reviewed medication(s) side effects, precautions, dosing and course information. Prescription(s) given to the patient. Patient verbalized understanding. Written instructions provided in Nepali. The patient was discharged home and unaccompanied at time of discharge. He left the Emergency Department ambulatory and via private vehicle. Patient driving. FALL RISK ASSESSMENT: Fall risk assessment completed. No fall risk identified. --00:43 Kiran Grubbs R.N. Locked/Released at 11/02/2016 0:44 by Kiran Grubbs R.N.
--- NOTE | 2016-11-02 00:32 | ED ORDER SUMMARY ---
..... Patient: CRISTOBAL MORA OrderSheet [facility] VisitID: [id number] [address] [place] [address] 46y, M Registration Date/Time: 11/01/2016 ORDER SHEET Weight: 78.0 kg (stated) Allergies: Bee stings GENERAL ORDERS: Culture, Wound Deep (Abdomen) (swab) Urgent (00:31 11/02/2016 Lorena BOYER) (Ack 0:32 Kelleeegekimana) (0:36 JQuivey R.N.) Dress Wounds (00:31 11/02/2016 Lorena BOYER) (Ack 0:32 Zachery) (0:43 JQuivey R.N.) MEDICATION ORDERS: Lidocaine Injection 2 % (soln) (place at bedside) (00:21 11/02/2016 DDavis R.N. verbal order read back to Lorena BOYER) (0:22 DDavis R.N.) Bactrim DS PO (Tablet 800-160 mg) 2 tabs (NOW) (00:31 11/02/2016 Lorena BOYER) (Ack 0:32 JQuivey R.N.) (0:36 JQuivey R.N.) IV FLUIDS: ORDER SHEET NOTES: [Electronically signed by Kiran Grubbs R.N. (00:44 11/02/2016)] [Electronically signed by Nikko Joe MD (13:09 11/03/2016)] [Electronically locked/signed by Kiran Grubbs R.N. (00:44 11/02/2016)]
--- NOTE | 2016-11-02 00:32 | ED CLINICAL REPORT ---
Clinical Report - Physicians/Mid Levels [facility] [address] [place] [address] 11/01/2016 23:48 [id number] Time Seen: 00:03 Nov 02 2016. Arrived- By private vehicle. Historian- patient. CPT: ER phys charges level 3 plus (#[id number]). Abscess complicated I&D (#[id number]). HISTORY OF PRESENT ILLNESS Chief Complaint: LESION. This started last night and is still present. It is described as painful. It has been located on the abdomen. A cause has been identified. (picked at a pimple). Similar symptoms previously: None. Recent medical care: Not recently seen/assessed. REVIEW OF SYSTEMS No fever, chills, sore throat, cough or hoarseness. No enlarged lymph nodes, abdominal pain, nausea, diarrhea or joint pain. No vomiting. PAST HISTORY Back Pain. ADDITIONAL SURGERIES: Tonsillectomy. Ear Tubes. Medications: None. Allergies: Bee stings. SOCIAL HISTORY Heavy tobacco smoker (cigarette)- 1 pack per day. No alcohol use or drug use. ADDITIONAL NOTES The nursing notes have been reviewed. PHYSICAL EXAM Vital Signs: 11/01/2016 23:54 BP: 127/77. HR: 101. RR: 20. O2 saturation: 100%. Temp: 98.5 F. Pain level now: 9/10. Appearance: Alert. Anxious. Patient in mild distress. Eyes: Conjunctivae and eyelids normal. ENT: Pharynx normal. Neck: Neck supple. CVS: Normal heart rate and rhythm. No cardiac murmur. Respiratory: No respiratory distress. Skin: Skin warm. Single medium abscess with fluctuance and pointing to the abdomen. Skin rash present. Rash present on the left abdomen. Extremities: Extremities nontender. Neuro: Oriented X 3. LABS, X-RAYS, AND EKG Laboratory Tests: Culture, Wound Deep: (CHIO: 11/02/2016 00:30) ( MsgRcvd 11/03/2016 12:31) IP SPECIMEN DESCRIPTION: SWAB Test Result Flag Units (Reference) GRAM STAIN, WOUND, DEEP NO CELLS/NO BACTERIA: NO CELLS OR BACTERIA SEEN CULTURE, WOUND DEEP, AEROBIC DATE: 11/03/16 PRELIM REPORT: PRELIMINARY REPORT #1 -- STAAUR GROWTH: HEAVY GROWTH ID AND SENS TO FOLLOW: SENSITIVITY TO FOLLOW . PROGRESS AND PROCEDURES Incision & Drainage of Abscess: The abscess is located in the abdomen. The risks of the procedure, benefits and alternatives were explained. Consent was obtained. Anesthesia provided using 2% lidocaine. Skin cleansed with Betadine. The abscess was incised with a #11 surgical blade. A moderate amount of pus was drained. Cavity was irrigated with saline and packed with gauze. Sample obtained for cultures and gram stain. A dressing was applied. Estimated blood loss: 1 mL. Patient/family counseled. Disposition: Discharged. Condition: stable and improved. CLINICAL IMPRESSION Single deep abscess to the abdominal wall with incision and drainage. INSTRUCTIONS Protect wound and keep wound area clean. Leave dressing in place until seen in follow-up. Prescription Medications: Bactrim DS 800 mg / 160 mg: Take 1 tablet orally every 12 hours for 7 days. Dispense fourteen (14). No refills. Substitution is permissible. OTC Medications: Acetaminophen (available over the counter): take according to label instructions. Follow-up: Follow up with your doctor in two days. Call for an appointment. Understanding of the discharge instructions verbalized by patient. (Electronically signed by Nikko Joe MD 11/03/2016 13:09)
--- NOTE | 2016-11-02 00:32 | ED ORDER SUMMARY ---
..... Patient: CRISTOBAL MORA OrderSheet [facility] VisitID: [id number] [address] [place] [address] 46y, M Registration Date/Time: 11/01/2016 ORDER SHEET Weight: 78.0 kg (stated) Allergies: Bee stings GENERAL ORDERS: Culture, Wound Deep (Abdomen) (swab) Urgent (00:31 11/02/2016 Lroena BOYER) (Ack 0:32 Kelleeegekimana) (0:36 JQuivey R.N.) Dress Wounds (00:31 11/02/2016 Lorena BOYER) (Ack 0:32 Zachery) (0:43 JQuivey R.N.) MEDICATION ORDERS: Lidocaine Injection 2 % (soln) (place at bedside) (00:21 11/02/2016 DDavis R.N. verbal order read back to Lorena BOYER) (0:22 DDavis R.N.) Bactrim DS PO (Tablet 800-160 mg) 2 tabs (NOW) (00:31 11/02/2016 Lorena BOYER) (Ack 0:32 JQuivey R.N.) (0:36 JQuivey R.N.) IV FLUIDS: ORDER SHEET NOTES: [Electronically signed by Kiran Grubbs R.N. (00:44 11/02/2016)] [Electronically signed by Nkiko Joe MD (13:09 11/03/2016)] [Electronically locked/signed by Kiran Grubbs R.N. (00:44 11/02/2016)]
--- NOTE | 2016-11-03 13:09 | ED MED RECONCILIATION SUMMARY ---
Patient: CRISTOBAL MORA Medication Reconciliation Report [facility] VisitID: [id number] [address] [place] [address] 46y, M Registration Date/Time: 11/01/2016 Weight: 78.0 kg Height/Length: 72 in. BMI: 23.3 ALLERGIES: Bee stings The patient's Home Medications are listed below: NONE. The source(s) of the original Home Medication information: Not obtained. The following Medications were given to the patient in the Emergency Department: Lidocaine [Injection] Injection 2 %, administered: 11/02/2016 12:22:00 AM Bactrim DS [PO] PO 2 tab, administered: 11/02/2016 12:34:00 AM The following Medications were prescribed to the patient: Acetaminophen (available over the counter): take according to label instructions. -- Nikko Joe MD Bactrim DS 800 mg / 160 mg: Take 1 tablet orally every 12 hours for 7 days. Dispense fourteen (14). No refills. Substitution is permissible. -- Nikko Joe MD
--- NOTE | 2016-11-03 13:09 | ED DISCHARGE INSTRUCTIONS ---
Patient: CRISTOBAL MORA General Instructions Located Within [facility] VisitID: [id number] [place] [address] 46y, M Registration Date/Time: 11/01/2016 Single deep abscess to the abdominal wall with incision and drainage. INSTRUCTIONS Protect wound and keep wound area clean. Leave dressing in place until seen in follow-up. Prescription Medications: Bactrim DS 800 mg / 160 mg: Take 1 tablet orally every 12 hours for 7 days. Dispense fourteen (14). No refills. Substitution is permissible. OTC Medications: Acetaminophen (available over the counter): take according to label instructions. Follow-up: Follow up with your doctor in two days. Call for an appointment. Understanding of the discharge instructions verbalized by patient. ADDITIONAL INFORMATION Abscess [Incision & Drainage] An abscess (sometimes called a boil) occurs when bacteria get trapped under the skin and begin to grow. Pus forms inside the abscess as the body responds to the bacteria. An abscess can occur with an insect bite, ingrown hair, blocked oil gland, pimple, cyst, or puncture wound. Treatment of your abscess has required an incision to drain the pus. If the abscess pocket was large, a gauze packing may have been inserted. This will need to be removed and possibly replaced on your next visit. Antibiotics are not required in the treatment of a simple abscess, unless the infection is spreading into the skin around the wound (known as cellulitis). Healing of the wound will take about one to two weeks depending on the size of the abscess. Healthy tissue will grow from the bottom and sides of the opening until it seals over. Home Care: The wound may drain for the first two days. Cover the wound with a clean dry dressing. If the dressing becomes soaked with blood or pus, change it. If a gauze packing was placed inside the abscess cavity, you may be advised to remove it yourself. You may do this in the shower. Once the packing is removed, you should wash the area in the shower or bath 3 to 4 times a day, until the skin opening has closed. If you were prescribed antibiotics, take them as directed until they are all gone. You may use acetaminophen (Tylenol) or ibuprofen (Motrin, Advil) to control pain, unless another pain medicine was prescribed. [ NOTE: If you have liver disease or ever had a stomach ulcer, talk with your doctor before using these medicines.] Follow Up with your doctor as advised by our staff. If a gauze packing was inserted in your wound, it should be removed in 1-2 days. Check your wound every day for the signs of worsening infection listed below. Get Prompt Medical Attention if any of the following occur: Increasing redness or swelling Red streaks in the skin leading away from the wound Increasing local pain or swelling Continued pus draining from the wound two days after treatment Fever of 100.4F (38C) or higher, or as directed by your healthcare provider You have been given the following additional information: Abscess, Incision And Drainage (Electronically signed by Nikko Joe MD 11/03/2016 13:09)
--- NOTE | 2016-11-03 13:09 | ED MED RECONCILIATION SUMMARY ---
Patient: CRISTOBAL MORA Medication Reconciliation Report [facility] VisitID: [id number] [address] [place] [address] 46y, M Registration Date/Time: 11/01/2016 Weight: 78.0 kg Height/Length: 72 in. BMI: 23.3 ALLERGIES: Bee stings The patient's Home Medications are listed below: NONE. The source(s) of the original Home Medication information: Not obtained. The following Medications were given to the patient in the Emergency Department: Lidocaine [Injection] Injection 2 %, administered: 11/02/2016 12:22:00 AM Bactrim DS [PO] PO 2 tab, administered: 11/02/2016 12:34:00 AM The following Medications were prescribed to the patient: Acetaminophen (available over the counter): take according to label instructions. -- Nikko Joe MD Bactrim DS 800 mg / 160 mg: Take 1 tablet orally every 12 hours for 7 days. Dispense fourteen (14). No refills. Substitution is permissible. -- Nikko Joe MD
--- NOTE | 2016-11-03 13:09 | ED MAR SUMMARY ---
..... Medication Administration Record [facility] [address] [place] [address] Patient: CRISTOBAL MORA Visit ID: [id number] 46y, M Weight: 78.0 kg Height/Length: 72 in BMI: 23.3 ALLERGIES: Bee stings Given 00:22 11/02/2016 Tay Jimenes RRoss Medication Administered: LIDOCAINE [INJECTION], Dose: 2 % Injectable Injection. Medication Ordered: Lidocaine Injection 2 % (soln) (place at bedside). Given 00:34 11/02/2016 Kiran Grubbs RRoss Medication Administered: BACTRIM DS [PO] (SULFAMETHOXAZOLE-TMP DS), Dose: 2 tab PO. Medication Ordered: Bactrim DS PO (Tablet 800-160 mg) 2 tabs (NOW).
--- NOTE | 2016-11-03 13:09 | ED MAR SUMMARY ---
..... Medication Administration Record [facility] [address] [place] [address] Patient: CRISTOBAL MORA Visit ID: [id number] 46y, M Weight: 78.0 kg Height/Length: 72 in BMI: 23.3 ALLERGIES: Bee stings Given 00:22 11/02/2016 Tay Jimenes RRoss Medication Administered: LIDOCAINE [INJECTION], Dose: 2 % Injectable Injection. Medication Ordered: Lidocaine Injection 2 % (soln) (place at bedside). Given 00:34 11/02/2016 Kiran Grubbs RRoss Medication Administered: BACTRIM DS [PO] (SULFAMETHOXAZOLE-TMP DS), Dose: 2 tab PO. Medication Ordered: Bactrim DS PO (Tablet 800-160 mg) 2 tabs (NOW).
== END 2016-11-02 00:43 | disposition home or self-care (01) ==
LOC: ED SRH 23:47
DX: L02.211 Cutaneous abscess of abdominal wall (principal); B95.62 Methicillin resistant Staphylococcus aureus infection as the cause of diseases classified elsewhere
CPT/HCPCS: 90070; 90131; 90309; 90470; 91672